=== PATIENT | female | born 1975 | race African-American/Black ===

== ENCOUNTER 2017-01-05 13:44 | Emergency (ER) | payer BC ==
--- NOTE | ~2017-01-05 | CT4 ---
[facility]. [facility] A Service of [facility] / [facility] RADIOLOGY TEXT RESULTS PATIENT: ANURAG GALVAN LOCATION: SED : 71 UNIT #: [id number] AGE: [address]: Phuc Alvarez MD SEX: F ORDER DR: [id number] [address] [address] [id number] E MR#: [id number] Acc #: [id number] NAME: ANURAG GALVAN : 1975 SEX: F STUDY DATE/TIME: 01/05/2017 15:50 UNIT: SED ROOM: STUDY DESCRIPTION: CT Abd and Pelv Wo Cont Attending Physician: Phuc Alvarez M.D. Ordering Physician: Phuc Alvarez M.D. Primary Care Physician: Abilio Saba M.D. MEDICAL IMAGING REPORT This report is preliminary unless electronic signature is present. EXAM CT of the abdomen and pelvis, without contrast media. HISTORY Abdominal pain and nausea since Monday. TECHNIQUE Transaxial imaging of the abdomen and pelvis was performed without contrast media. This CT exam was performed with one or more of the following radiation dose reduction techniques: automatic exposure control, adjustment of mA and/or kV according to patient size, and iterative reconstruction. FINDINGS Scans through the lung bases show a calcified granuloma in the right base posterolaterally. Scans through the liver parenchyma are normal. The gallbladder is absent. The spleen is of normal size and attenuation. Adrenal glands are normal, and the pancreas is normal. No evidence of gastric or proximal small bowel distention. Right and left kidneys have a normal appearance. No dilated or thickened loops of bowel are identified. The appendix in this patient is normal. There are scattered diverticula, particularly in the sigmoid region. The uterus in this patient appears enlarged, measuring 13.9 x 9.1 x 8.2 cm. No adnexal masses or fluid collections are seen. The bladder is normal. CONCLUSION 1. Postop changes of prior cholecystectomy. 2. No acute findings in the abdomen and pelvis. 3. Diffusely enlarged uterus measuring 13.4 x 9.1 x 8.2 cm. [facility] A Service of [facility] RADIOLOGY TEXT RESULTS PATIENT: ANURAG GALVAN LOCATION: [facility] : [birth year] UNIT #: [id number] AGE: [address]: Phuc Alvarez MD SEX: F ORDER DR: Dictated by... Abilio Izquierdo M.D. THIS IS AN ELECTRONICALLY VERIFIED REPORT Abilio Izquierdo M.D. at 01/09/2017 2:45 PM BARRY/porfirio TD: 01/05/2017 17:44 JOB #: [id number] MEDICAL IMAGING REPORT Page 1 of 1
[~2017-01-05 13:44] MED LIST: CIPRO PO; LEXAPRO5 MG PO; LINZESS290 MCG PO; PREDNISONE PO; ROBAXIN500 MG PO
[2017-01-05 13:49] LABS: URINE SOURCE CLEAN CATCH
[2017-01-05 13:52] LABS: URINE APPEARANCE CLOUDY; URINE BILIRUBIN NEG (NEG); URINE BLOOD 3+ (NEG); URINE COLOR DK YELLOW; URINE GLUCOSE NEG (NORM); URINE KETONE NEG (NEG); URINE LEUKOCYTE ESTERASE NEG (NEG); URINE NITRATE NEG (NEG); URINE PROTEIN TRACE (NEG); URINE SPECIFIC GRAVITY 1.025 (1.003-1.035); URINE UROBILINOGEN 0.2 MG/DL (NORM)
[2017-01-05 14:06] LABS: MICRO INDICATED? YES
[2017-01-05 14:14] LABS: CULTURE INDICATED? YES; URINE BACTERIA 1+ (NEG); URINE RBC INNUM /[HPF] (0-2); URINE SQUAMOUS EPITHELIAL CELL OCCAS /[HPF]
[2017-01-05 14:38] LABS: BASOPHIL% 0.7 % (0-2.5); EOSINOPHIL# 0.2 X10e3 (0-0.7); EOSINOPHIL% 2.9 % (0.0-7.0); HEMATOCRIT 35.7 % (35.0-45.0); HEMOGLOBIN 11.2 gm/dL (12.0-16.0); LYMPHOCYTE# 2.1 X10e3 (1.0-3.5); LYMPHOCYTE% 32.3 % (17.0-45.0); MEAN CELL VOLUME 81.2 FL (83-96); MEAN CORPUSCULAR HEMOGLOBIN 25.4 PG (28-34); MEAN CORPUSCULAR HGB CONC 31.3 g/dL (30-36); MEAN PLATELET VOLUME 9.4 FL (6.5-11.5); MONOCYTE# 0.7 X10e3 (0-1.0); MONOCYTE% 10.2 % (3.0-12.0); NEUTROPHIL# 3.5 X10e3 (1.5-7.1); NEUTROPHIL% 53.9 % (40-75); PLATELET COUNT 272 X10e3 (140-420); RED BLOOD COUNT 4.39 X10e (3.90-5.30); RED CELL DISTRIBUTION WIDTH 14.5 % (11.0-15.5); WHITE BLOOD COUNT 6.5 X10e3 (4.0-10.5)
[2017-01-05 14:41] LABS: DIFF IND NO
[2017-01-05 14:42] LABS: ALBUMIN SERUM 4.3 g/dL (3.5-5.0); BILIRUBIN, DIRECT 0.1 mg/dL (0.0-0.2); BILIRUBIN,INDIRECT 0.6 mg/dL (0.0-0.9); BILIRUBIN,TOTAL 0.7 mg/dL (0.2-2.0); BUN/CREATININE RATIO 11.25; CALCIUM SERUM 9.2 mg/dL (8.4-10.2); CREATININE SERUM 0.8 mg/dL (0.6-1.4); GLOM FILT RATE Estimated 104.7 mL/min (>60); POTASSIUM 3.8 mmol/L (3.5-5.1); PROTEIN TOTAL SERUM 8.2 g/dL (6.0-8.3)
== END 2017-01-05 17:10 | disposition home or self-care (01) ==
LOC: SED 13:44
PROVIDERS: Emergency Medicine
DX: K29.00 Acute gastritis without bleeding (principal); N39.0 Urinary tract infection, site not specified; K21.9 Gastro-esophageal reflux disease without esophagitis; Z90.49 Acquired absence of other specified parts of digestive tract; Z88.0 Allergy status to penicillin; Z88.6 Allergy status to analgesic agent; Z79.899 Other long term (current) drug therapy
CPT/HCPCS: 36415; 74176; 80048; 80076; 81003; 82150; 83690; 84703; 85025; 87086; 96361; 96374; 96375; 96376; 99284; C9113; J1170; J2405